=== PATIENT | female | born 1965 | race African-American/Black ===

== ENCOUNTER 2023-09-03 03:29 | Emergency (ER) | payer MEDICAID, OTHER ==
[~2023-09-03] VITALS: Ht 170.2 cm; Wt 143.0 kg
[~2023-09-03 03:29] MED LIST: AMLO10TA80 PO; ATOR40TA70 PO; DULO30CA2 PO; GABA-532 PO; LOSA100T33 MT; LOSA25TA26 PO; MELA1TAB51 MT; METF-416 PO
[2023-09-03 03:31] VITALS: O2SAT 99
[2023-09-03 05:03] LABS: BASOPHILS % 0.2 % (0.0-2.0); EOSINOPHILS % 1.3 % (0.0-5.0); HEMATOCRIT. 37.8 % (36.0-48.0); HEMOGLOBIN. 12.6 g/dL (12.0-16.0); LYMPHOCYTES % 14.1 % (20.0-50.0); MEAN CORPUSCULAR HEMOGLOBIN 28.2 pg (28.0-32.0); MEAN CORPUSCULAR HGB CONC 33.4 g/dL (31.0-37.0); MEAN CORPUSCULAR VOLUME 84.4 fL (81.0-99.0); MEAN PLATELET VOLUME 8.9 fl (7.4-10.4); MONOCYTES % 6.6 % (2.0-8.0); NEUTROPHILS % 77.8 % (40.0-76.0); PLATELET 203 x1000/uL (130-400); RED BLOOD CELL COUNT 4.47 mill/uL (4.2-5.4); RED CELL DISTRIBUTION WIDTH 14.1 % (11.6-14.6); WHITE BLOOD COUNT 7.5 x1000/uL (4.5-11.0)
[2023-09-03 05:20] LABS: CHLORIDE 106 mEq/L (98-107); POTASSIUM 3.9 mEq/L (3.5-5.1); SODIUM 141 mEq/L (136-145)
[2023-09-03 05:21] LABS: CALCIUM 9.2 mg/dL (8.7-10.4); CARBON DIOXIDE 30 mEq/L (21-32)
[2023-09-03 05:26] LABS: CREATININE 0.8 mg/dL (0.6-1.0); GLUCOSE 143 mg/dL (70-105); UREA NITROGEN BLOOD 6 mg/dL (9-23)
[2023-09-03 05:29] LABS: TROPONIN I HIGH SENSITIVITY < 4 ng/L (3.0-34)
[2023-09-03 05:44] VITALS: BP 128/76; PULSE 70; RESP 10; TEMP 97.7
== END 2023-09-03 06:01 | disposition home or self-care (01) ==
LOC: ER 03:29
DX: F43.9 Reaction to severe stress, unspecified (principal); F12.10 Cannabis abuse, uncomplicated; E11.9 Type 2 diabetes mellitus without complications; I10 Essential (primary) hypertension; Z79.899 Other long term (current) drug therapy
CPT/HCPCS: 36415; 71045; 80048; 84484; 85025; 99284

== ENCOUNTER 2024-01-17 19:28 | Emergency (ER) | payer MEDICAID ==
[~2024-01-17] VITALS: Ht 170.2 cm; Wt 136.0 kg
[~2024-01-17 19:28] MED LIST changes: +GABA-1180 PO; -GABA-532 PO
[2024-01-17 19:43] VITALS: O2SAT 97
[2024-01-17 20:41] LABS: BASOPHILS % 0.4 % (0.0-2.0); EOSINOPHILS % 3.5 % (0.0-5.0); HEMATOCRIT. 41.5 % (36.0-48.0); HEMOGLOBIN. 13.6 g/dL (12.0-16.0); LYMPHOCYTES % 25.7 % (20.0-50.0); MEAN CORPUSCULAR HEMOGLOBIN 27.8 pg (28.0-32.0); MEAN CORPUSCULAR HGB CONC 32.7 g/dL (31.0-37.0); MEAN PLATELET VOLUME 9.1 fl (7.4-10.4); MONOCYTES % 6.9 % (2.0-8.0); NEUTROPHILS % 63.5 % (40.0-76.0); PLATELET 233 x1000/uL (130-400); RED BLOOD CELL COUNT 4.88 mill/uL (4.2-5.4); RED CELL DISTRIBUTION WIDTH 13.7 % (11.6-14.6); WHITE BLOOD COUNT 6.9 x1000/uL (4.5-11.0)
[2024-01-17 20:45] LABS: CHLORIDE 106 mEq/L (98-107); POTASSIUM 4.3 mEq/L (3.5-5.1); SODIUM 144 mEq/L (136-145)
[2024-01-17 20:46] LABS: CALCIUM 9.7 mg/dL (8.7-10.4); CARBON DIOXIDE 31 mEq/L (21-32)
[2024-01-17 20:51] LABS: CREATININE 0.8 mg/dL (0.6-1.0); GLUCOSE 110 mg/dL (70-105); UREA NITROGEN BLOOD 7 mg/dL (9-23)
[2024-01-17 21:10] LABS: TROPONIN I HIGH SENSITIVITY < 4 ng/L (3.0-34)
[2024-01-17] MEDS: NITROGLYCERIN OINT 1GM/INCH UDPKT TD ONE (21:45)
[2024-01-17] MEDS: CEFTRIAXONE 1GM/50ML 50 ML IV ONE (21:45)
[2024-01-17] MEDS: AZITHROMYCIN 500MG/250ML 250 ML IV SCH (21:45)
[2024-01-17] MEDS ORDERED: AMLODIPINE 10MG TABLET PO ONE (21:45)
[2024-01-17] MEDS: AMLODIPINE 5MG TABLET PO NR (22:00)
[2024-01-17] MEDS: ASPIRIN 81MG TABLET PO ONE (22:00)
[2024-01-17] MEDS: CEFTRIAXONE 1GM/50ML 50 ML IV NR (23:32)
[2024-01-17 23:35] LABS: TROPONIN I HIGH SENSITIVITY < 4 ng/L (3.0-34)
[2024-01-18 01:41] VITALS: BP 162/97; PULSE 87; RESP 18; TEMP 36.83628; O2SAT 97
== END 2024-01-18 01:48 | disposition short-term general hospital (02) ==
LOC: ER 19:28
DX: J18.9 Pneumonia, unspecified organism (principal); R07.89 Other chest pain; E11.9 Type 2 diabetes mellitus without complications; I10 Essential (primary) hypertension; E66.9 Obesity, unspecified; Z79.899 Other long term (current) drug therapy; Z82.49 Family history of ischemic heart disease and other diseases of the circulatory system; Z79.84 Long term (current) use of oral hypoglycemic drugs; Z90.710 Acquired absence of both cervix and uterus
CPT/HCPCS: 80048; 83880; 85025; 87040; 84484; 36415; 71046; 93005; 96368; 96365; 96366; 99285; J0456; J0696; Z7610